=== PATIENT | female | born 1950 | race Caucasian/White ===

== ENCOUNTER → 2020-04-08 14:31 | Outpatient (CLI) | payer MEDICARE, SELFPAY ==
[2020-04-08 18:53] LABS: Coronavirus 19 IgG Antibody Negative (Negative); Coronavirus 19 IgM Antibody Negative (Negative)
== END ==
PROVIDERS: Visit Provider Internal Medicine Gastroenterology
DX: Z01.818 Encounter for other preprocedural examination (principal)
CPT/HCPCS: 36415; 86328

== ENCOUNTER 2020-04-11 11:57 | Day surgery (SDC) | payer MEDICARE, SELFPAY ==
[2020-04-06 13:25] VITALS: BMI 34.9
[2020-04-11 13:08] VITALS: BP 146/82; PULSE 77; RESP 18; TEMP 36.6; O2SAT 97
[2020-04-11 15:03] VITALS: O2SAT 97
--- NOTE | 2020-04-11 15:05 | HMH.PROC ---
[facility] Procedure Note Procedure Note:: Upper Endoscopy Procedure Report: Esophagogastroduodenoscopy with cold biopsies and TTS balloon dilation Endoscopost: Kavin Allison II, MD Referring Physician: Julia Lee MD Date of Procedure: April 11, 2020 Equipment: Olympus GIF 180 standard upper endoscope Sedation: MAC sedation Indications: Mrs. Nolan is a 69-year-old female with dyspepsia. She has had burning epigastric abdominal pain and discomfort that occurs just after a few bites postprandially. The patient does report bloating and some belching. She will also have some regurgitation and emesis periodically. She does report early satiety. She has had dyspepsia and reflux in the past. She had a colonoscopy with sc in March 2019 and had 12 diminutive colon polyps (tubular adenomas x12). The patient did have an upper endoscopy with me in December 2015. At that time she had a Schatzki's ring and some reactive gastropathy. She reports no nausea. She has fluctuating weight. Procedure: Prior to the procedure, a history and physical exam was performed, and patient's medications and allergies were reviewed. The risks, benefits and alternatives of the sedation and procedure were discussed with the patient. All questions were answered and informed consent was obtained. The patient was brought to the procedure room. Patient identification and proposed procedure were verified by the physician and the nurse. The patient was placed in a left lateral decubitus position and the scope was passed under direct vision. Throughout the procedure, the patient's blood pressure, pulse, and oxygen saturations were monitored continuously. The upper GI endoscopy was accomplished without difficulty. The patient tolerated the procedure well. Findings: The scope was passed directly into the upper esophagus and advanced to the third portion of the duodenum. The post bulbar duodenum and duodenal bulb were normal with normal mucosa and conniventes. The scope was withdrawn through a normal duodenal bulb and pylorus into the stomach. There was some linear reactive gastropathy of the antrum with bile reflux. The remainder of the antrum, body and fundus of the stomach were grossly normal. Upon retroflexion there was a small 2 cm hiatal hernia. 2 biopsies were taken in the antrum and along the lesser curvature for histology to rule out gastritis and/or H pylori. The scope was then withdrawn into the esophagus. There was a distal Schatzki's ring. There was also a small sentinel/inflammatory polyp at the GE junction that was biopsied. The entire esophagus was dilated to 60 Polish/20 mm with a TTS hydrostatic balloon. There was some resistance at the cricopharyngeus. The remainder of the esophageal mucosa was normal. Impression: 1. Cricopharyngeal spasm status post dilation to 20 mm 2. Schatzki's ring dilated to 20 mm 3. Nonerosive GERD with small 2 cm hiatal hernia and mild esophageal dysmotility 4. Linear reactive gastropathy Plan: I will follow-up the biopsies. The patient does have functional dyspepsia. We will discuss additional dietary measures and treatment options.
--- NOTE | 2020-04-11 15:17 | P.PN_ITS ---
[facility] Anesthesia Checklist - Patient Identification Patient Identification: Arm Band, Verbal (Name & ) - Structural Data Admitted From: Home Planned Operative Procedure/s: EGD Consent for Planned Operative Procedure(s) Verified: Yes Verified Documents: Surgical Consent, History and Physical - NPO Status Verified Time NPO: 00:00 - Chart Verification Results Verified: None - Additional verifications Anesthesia Reactions: No - Airway Assessment C-Spine Mobility Assessed: Yes TMJ Mobility Assessed: Yes Dentition: Dentures-good fit (upper and lower- removed) - Neurological Assessment Level of Consciousness: Awake, Alert, Appropriate, Follows Commands Hx Seizures: No Numbness or tingling in extremities: No - Anesthesia Plan Anesthesia Risk discussed: Yes Anesthesia Plan: Verified ASA Class: II Anesthesia Type: MAC [facility] History I have reviewed the patient's past medical history: Yes Medical History: Reports:: Gastroesophageal Reflux Disease(GERD), Hyperlipidemia, Hypertension, MRSA (hip) Denies:: Cancer, Diabetes Mellitus Type 1, Diabetes Mellitus Type 2, Internal Pacemaker, Seizures *Have you ever received a pneumonia vaccine?: No *Have you received a flu vaccine this season?: Yes Anesthesia experience/problems:: no prior complications Laterality Cases: Bilateral: Arthroscopy Hip, Cataract Other Surgeries: Yes: Cardiac Catheterization. No: Pacemaker Amputation: No - *Social History Last grade of school completed: GED Alcohol Intake: never Substance Use Type: denies use *Occupational Status:: retired Housing: house Household Members: spouse *Travel in the last 8 weeks: None Family Hx:: Other (NA)
[2020-04-11 15:18] VITALS: BP 119/71; PULSE 74; RESP 16; TEMP 36.3; O2SAT 96
[2020-04-11 15:28] VITALS: BP 121/76; PULSE 74; RESP 16; O2SAT 98
[2020-04-11 15:38] VITALS: BP 125/80; PULSE 77; RESP 16; O2SAT 95
[2020-04-11 15:48] VITALS: BP 138/82; PULSE 72; RESP 18; TEMP 36.4; O2SAT 98
== END 2020-04-11 15:50 | disposition home or self-care (01) ==
LOC: OUTP 12:01
PROVIDERS: PCP Pediatrics; Visit Provider Internal Medicine Gastroenterology
PROC: 0DJ08ZZ Inspection of Upper Intestinal Tract, Via Natural or Artificial Opening Endoscopic (ICD-10-PCS; CPT 43235; principal; 2020-04-11 13:00)
DX: K21.9 Gastro-esophageal reflux disease without esophagitis (principal); K22.4 Dyskinesia of esophagus; J39.2 Other diseases of pharynx; K22.2 Esophageal obstruction; K44.9 Diaphragmatic hernia without obstruction or gangrene; K31.9 Disease of stomach and duodenum, unspecified; Z86.010 Personal history of colon polyps; Z87.19 Personal history of other diseases of the digestive system; E78.5 Hyperlipidemia, unspecified; I10 Essential (primary) hypertension; Z86.14 Personal history of Methicillin resistant Staphylococcus aureus infection; Z79.899 Other long term (current) drug therapy
CPT/HCPCS: 43239; 43249; 88305; C1726; J2704